=== PATIENT | female | born 1990 | race Caucasian/White ===

== ENCOUNTER 2020-12-09 00:46 | Emergency (ER) | payer MEDICAID, OTHER ==
[~2020-12-09] VITALS: Ht 170.2 cm; Wt 63.2 kg
[~2020-12-09 00:46] MED LIST: IBUP80TA PO; PRENTAB40 PO
[2020-12-09 00:56] VITALS: BP 105/78
== END 2020-12-09 03:08 | disposition left against medical advice (07) ==
LOC: M ED 00:46
DX: Z53.21 Procedure and treatment not carried out due to patient leaving prior to being seen by health care provider (principal)

== ENCOUNTER → 2022-01-22 | Outpatient (CLI) | payer MEDICAID, OTHER ==
[2022-01-22 14:22] LABS: BASO # 0.1 10^3/uL (0.0-0.2); BASO % 0.7 % (0.0-1.0); EOS # 0.2 10^3/uL (0.0-0.5); EOS % 2.2 % (0.0-3.0); HEMATOCRIT 46.7 % (36.0-47.0); HEMOGLOBIN 15.8 g/dl (12.0-15.5); LYMPH # 2.7 10^3/uL (1.5-5.0); LYMPH % 40.1 % (24.0-44.0); MEAN CORPUSCULAR HEMOGLOBIN 31.5 pg (27.0-33.0); MEAN CORPUSCULAR HGB CONC 33.8 g/dl (32.0-36.5); MEAN CORPUSCULAR VOLUME 93.2 fl (80.0-96.0); MONO # 0.4 10^3/uL (0.0-0.8); MONO % 5.7 % (2.0-8.0); NEUTROPHILS # 3.5 10^3/uL (1.5-8.5); PLATELET COUNT, AUTOMATED 201 10^3/uL (150-450); RED BLOOD COUNT 5.01 10^6/uL (4.00-5.40); WHITE BLOOD COUNT 6.8 10^3/uL (4.0-10.0)
[2022-01-22 15:09] LABS: ALT/SGPT 22 U/L (12-78); BLOOD UREA NITROGEN 9 MG/DL (7-18); CARBON DIOXIDE LEVEL 27 MEQ/L (21-32); CHLORIDE LEVEL 107 MEQ/L (98-107); CREATININE FOR GFR 0.79 MG/DL (0.55-1.30); GLOMERULAR FILTRATION RATE > 60.0 (>60); GLUCOSE, FASTING 88 MG/DL (70-100); POTASSIUM SERUM 4.1 MEQ/L (3.5-5.1); SODIUM LEVEL 138 MEQ/L (136-145)
[2022-01-22 15:10] LABS: BILIRUBIN,TOTAL 0.6 MG/DL (0.2-1.0); CHOLESTEROL LEVEL 108 MG/DL (<200); CHOLESTEROL RISK RATIO 2.511 (<5); HDL CHOLESTEROL 43 MG/DL (>40); LDL CHOLESTEROL 56 MG/DL (<100); NON-HDL-C 65 MG/DL; THYROID STIMULATING HORMONE 0.737 uIU/ML (0.358-3.740); TOTAL PROTEIN 7.6 GM/DL (6.4-8.2); TRIGLYCERIDES LEVEL 44 MG/DL (<150)
== END ==
LOC: M PLALAB 11:09
PROVIDERS: ATTEND Physician Assistant
DX: Z00.00 Encounter for general adult medical examination without abnormal findings (principal); Z13.220 Encounter for screening for lipoid disorders; F41.9 Anxiety disorder, unspecified

== ENCOUNTER → 2023-05-30 | Outpatient (CLI) | payer MEDICAID ==
[~2023-05-30] MED LIST changes: +BUPR1SUB35 PO; +BUPR1SUB5 SL; +CLON-412 PO; +CLONI1TA PO; +FOLI1TAB11 PO; +FURO20TA2 PO; +HYDR-3363 PO; +IBUP-1022 PO; +METH-1177 PO; +METR-265 PO; +NICO21PAT TD; +OLAN1TAB16 PO; +PANT40TA29 PO; +PRAZ1CAP PO; +SPIR-10 PO; +TRAZ-252 PO
== END ==
LOC: M OUTALCOH 08:01
PROVIDERS: ATTEND Psychiatry & Neurology Psychiatry
DX: F10.10 Alcohol abuse, uncomplicated (principal)